=== PATIENT | male | born 1950 | race Caucasian/White ===

== ENCOUNTER → 2019-10-11 09:29 | Outpatient (CLI) | payer MEDICARE, SELFPAY ==
--- NOTE | ~2019-10-11 | MR_ITS ---
EXAMINATION: MR knee LT wo con DATE: 10/11/2019 10:18 INDICATION: Medial left knee pain. TECHNIQUE: Magnetic resonance imaging (MRI) of the left knee was performed without intravenous contra st. Sequences included axial PD-weighted FS FSE, coronal PD-weighted FSE and PD-weighted FS FSE, sagi ttal PD-weighted FSE, and sagittal T2-weighted FS FSE. COMPARISON: Left knee radiographs 10/05/2019 FINDINGS: Medial compartment: There is an undersurface horizontal tear involving body and posterior horn of medial meniscus. There is full-thickness cartilage loss of femoral condyle involving the central and posterior articular jean-pierre face in an area measuring 2.1 x 0.4 cm with mild subchondral edema-like marrow signal intensity. Ther e are areas of shallow partial-thickness cartilage loss of femoral condyle. There is cartilage surfac e irregularity of tibial condyle. Marginal osteophytes are noted. Lateral compartment: There is a complex tear involving body and posterior horn of lateral meniscus. There is deep partial thickness cartilage loss of femoral condyle involving the central articular surface with mild subchon dral edema-like marrow signal intensity. There is deep partial thickness cartilage loss of tibial con dyle involving the medial and posterior aspects of the articular surface with mild subchondral edema- like marrow signal intensity. Patellofemoral compartment: There is full-thickness cartilage loss of patellar medial facet and partial thickness cartilage loss of patellar median ridge and lateral facet with mild subchondral edema-like marrow signal intensity. There is shallow partial-thickness cartilage loss of trochlea. Marginal osteophytes are noted. Ligaments and tendons: There is a complete tear of anterior cruciate ligament. Posterior cruciate ligaments is intact. There are changes of prior sprains of medial collateral ligament and fibular collateral ligament character ized by thickening and increased signal intensity proximally. The patellar tendon is normal. Fluid: There is a small knee joint effusion. There is a moderate-sized ruptured Pearce's cyst. There is mild prepatellar and superficial infrapatellar bursitis. IMPRESSION: 1. Severe chondrosis of medial and patellofemoral compartments and moderate chondrosis of lateral com partment. 2. Complete tear of anterior cruciate ligament. 3. Tears of medial and lateral menisci. 4. Small knee joint effusion. 5. Moderate-sized ruptured Pearce's cyst. Reviewed, dictated and finalized at location A. [employer] IMPRESSION: 1. Severe chondrosis of medial and patellofemoral compartments and moderate cho ndrosis of lateral compartment. 2. Complete tear of anterior cruciate ligament. 3. Tears of medial and lateral menisci. 4. Small knee joint effusion. 5. Moderate-sized ruptured Pearce's cyst.
== END ==
PROVIDERS: PCP Internal Medicine; Visit Provider Internal Medicine
DX: M25.462 Effusion, left knee (principal); M71.22 Synovial cyst of popliteal space [Baker], left knee; S83.512A Sprain of anterior cruciate ligament of left knee, initial encounter; X58.XXXA Exposure to other specified factors, initial encounter; S83.282A Other tear of lateral meniscus, current injury, left knee, initial encounter; S83.242A Other tear of medial meniscus, current injury, left knee, initial encounter
CPT/HCPCS: 73721

== ENCOUNTER 2022-09-21 13:40 | Outpatient (RCR) | payer MEDICARE, SELFPAY ==
--- NOTE | 2022-09-21 15:08 | BUPTOPEVAL1 ---
Assessment and note entered by Deandra Leon, PT Evaluation Information Assessment Status Evaluation Diagnosis dizziness and giddiness Onset ~ a year ago Subjective Information Noticed was behind the plate in baseball noticed couldn't focus on the ball when it would come over the plate. States was working on his wifes grave and was up and down, then had to lay on the ground because was so dizzy for about a half hour. 2 weeks ago, was getting ready to shower, bent over and fell to the floor and belly crawled to the phone. Reports always feels a small tightness in sinus area. Reported Pain Level Pain Score 0: Self Report Additional Pain Score Comments Reports dizziness. Always is a little cloudy feeling a little tight in sinus area 10/10 with symptoms a few weeks ago. Assessment PT Clinical Summary Pt presents w/ dx of dizziness and giddiness. Pt reports of symptoms highly suggestive of BPPV at the time he was having symptoms. Today he demo's mild deficit in static balance in small base of support positions, only mild increased difficulty in balance between eyes open and closed testing, and zero symptoms with Cromwell-Hallpike, Roll Test, or VOR testing. Only symptoms present today are mild sinus pressure, and difficulty with eyes focusing at times both without dizzienss. Pt was educated on anatomy and physiology of BPPV, his current status and functional level and therapy plans. Pt also has an eye doctor appt in two days, advised pt to discuss symptoms with doctor. Pt and therapist decided together that as patient nicole has no vestibular symptoms, is highly safe and functional regarding balance, to await eye doctor prognosis and revisit therapy options. Plan of Care Interventions Neuro Re-education,Therapeutic Activities, Therapeutic Exercise PT Services Indicated Yes Treatment Frequency and 1-2x weekly x 4 weeks pending patient decision Duration after eye doctor. These treatments will address the objective and functional deficits as defined above. The patient will be advanced safely and appropriately in order for the patient to progress towards his/her prior level of function. Additional exercises will be introduced and as well as a comprehensive home exercise program upon discharge, if needed, ?to ensure c
--- NOTE | 2022-10-16 11:25 | PTOPDC ---
Assessment and note entered by Deandra Leon, PT Assessment Status Discharge - Pt Not Present Diagnosis dizziness and giddiness Onset ~ a year ago Subjective Information (09/21/22) Noticed was behind the plate in baseball noticed couldn't focus on the ball when it would come over the plate. States was working on his wifes grave and was up and down, then had to lay on the ground because was so dizzy for about a half hour. 2 weeks ago, was getting ready to shower, bent over and fell to the floor and belly crawled to the phone. Reports always feels a small tightness in sinus area. Reported Pain Level Pain Score 0: Self Report Assessment PT Clinical Summary Pt had presented to therapy for evaluation of his dizziness on 09/21/22. Evaluation was unable to provoke symptoms at the time with only testing showing visual deficits and pt c/o sinus pressure sensation. Pt has since seen the eye doctor, and has not called to return to therapy. Thus pt is being discharged from [facility].
== END 2022-10-16 12:47 | disposition home or self-care (01) ==
LOC: ANHHIPT 13:40
PROVIDERS: PCP Family Medicine; Visit Provider Family Medicine
DX: R42 Dizziness and giddiness (principal)
CPT/HCPCS: 97161

== ENCOUNTER 2024-12-04 08:49 | Outpatient (CLI) | payer MEDICARE, SELFPAY ==
--- OUTSIDE RECORDS SUMMARY | 2024-12-04 09:28 | XMS_ITS | Clinical Summary ---
Author Organization [facility] Address [address] [place] [address] Care Team Providers Care Patient Liaison Name Role Phone Maykel Palafox MD Primary Care Provider [phone] Allergies Active Allergy Reactions Criticality Noted Date Comments Tamsulosin Dizziness 07/15/2022 Medications benazepril (LOTENSIN) 10 MG tabletIndicatio ns:Hypertension Take 1 tablet (10 mg total) by mouth daily. Indications: High Blood Pressure 2 Active simvastatin (ZOCOR) 40 MG tabletIndicatio ns:Hyperlipidem ia Take 1 tablet (40 mg total) by mouth nightly at bedtime. Indications: High Amount of Fats in the Blood 2 Active multi vitamin/mineral s (THERA-M ENHANCED) tabletIndicatio ns:supplement Take 1 tablet by mouth daily. Indications: supplement Active polyvinyl alcohol (LIQUIFILM/STEPHANI FICIAL TEARS) 1.4 % ophthalmic solutionIndicat ions:Dry Eye Syndrome Place 1 drop into both eyes as needed (dry eyes). Indications: Drying and Inflammation of Cornea and Conjunctiva of Eyes Active HYDROcodone-radha taminophen (NORCO) 5-325 MG tabletIndicatio ns:Acute Pain < 7 Day Supply Take 1-2 tablets by mouth every 4 (four) hours as needed. Indications: Acute Pain < 7 Day Supply 45 tablet 4 Active Additional Information Patient not taking.Reported on 09/28/2024 aspirin 325 MG tabletIndicatio ns:anticogulant Take 1 tablet (325 mg total) by mouth 2 (two) times daily. Indications: anticogulant 4 Active tiZANidine (ZANAFLEX) 4 MG tabletIndicatio ns:S/P TKR (total knee replacement), left take 1 tablet by mouth every 6 hours as needed 30 tablet 4 Active HYDROcodone-radha taminophen (NORCO) 10-325 MG tabletIndicatio ns:Acute Pain < 7 Day Supply Take 1 tablet by mouth every 4 (four) hours as needed for Pain. Indications: Acute Pain < 7 Day Supply 42 tablet 4 Active Additional Information Patient not taking.Reported on 09/28/2024 Acetaminophen (TYLENOL ARTHRITIS EXT RELIEF OR) Active pregabalin (LYRICA) 75 MG capsule Take 1 capsule (75 mg total) by mouth 2 (two) times daily. 4 Active cephALEXin (KEFLEX) 500 MG capsuleIndicati ons:S/P TKR (total knee replacement), left Take 1 capsule 30-60 minutes prior to dental procedure, then take 1 capsule every 6 hours until gone. #6. 6 capsule 4 Active methylPREDNISol one, CORNELIO, (MEDROL DOSEPAK) 4 MG tablet take by mouth as directed on inside of package 5 Active Active Problems Problem Noted Date Diagnosed Date S/P TKR (total knee replacement), left 4 Assessment & Plan (09/29/2024 1:02 PM YEAST CULTURE OPERATOR): Recommendation at this time we went over the risks benefits as well as the alternatives. He is to continue with progressive range of motion and strengthening. We'll see him back in six months. Assessment & Plan (06/23/2024 2:12 PM CDT): Recommendation at this time is to continue with a progressive range of motion and strengthening. Ice and elevate as needed. We'll see him back in three months. Assessment & Plan (05/13/2024 12:09 PM CDT): Recommendation at this time is gradually increase his activities as tolerated. We will see him back in six weeks for repeat evaluation. BMI 25.0-25.9,adult 03/05/2024 Primary osteoarthritis of left knee 03/04/2024 Assessment & Plan (03/04/2024 1:56 PM CDT): We discussed the risks, benefits, and alternatives. The only thing proven to slow the progression of osteoarthritis is weight loss. Every pound lost relieves 4 to 6 pounds of stress across the knee. We discussed unloading braces. Formal physical therapy to help with flexibility, mobility, and strength. We discussed TENS units. Nonsteroidal anti-inflammatories as well as Tylenol and pain medication and their side effects. We discussed steroid versus Visco supplement injection. We discussed eventual total knee arthroplasty. Failure of non-operative treatment. He has failed steroid injections, non- steroidal anti-inflammatories, activity modification, and bracing. After going over the risks and benefits as well as the alternatives, we went over standard instrumentation, custom cutting blocks, and Les robot-assisted total knee arthroplasty. He wants to go as soon as possible, so we'll try to get him set up on 03/29/24 here at [facility]. Hypertension Encounters Date Type Department Care Team Description 09/28/2024 1:00 PM YEAST CULTURE OPERATOR Office Visit [facility] Orthopedic Surgery[facility] [address] [place] [address] Tony Taylor DO Postop Followup (Left TKR 03/29/24) 09/28/2024 Travel from Last 3 Months Family History Medical History Relation Comments Hypertension Father No Known Problems Mother Relation Status Comments Father Mother Social History Tobacco Use Types Packs/Day Years Used Date Smoking Tobacco: Former Cigarettes Smokeless Tobacco: Never Tobacco Cessation:Counseling Given: No Alcohol Use Standard Drinks/Week Comments Yes 0 (1 standard drink = 0.6 oz pur e alcohol) rare use OASIS D0700: Social Isolation Answer Da te Recorded Frequency of experiencing loneliness or isolatio n Never 04/11/2024 OASIS A1250: Transportation Answer Date Recorded Lack of Transportation (Medical) No 04/11/2024 Lack of Transportation (Non-Medical) No 04/11/2024 Patient Unable or Declines to Respond No 04/11/2024 OASIS B1300: Health Literacy Answer Elkin e Recorded Frequency of needing help to read materials from doctor or pharmacy Never 04/11/2024 PHQ-2 Answer Date Recorded Patient Health Questionnaire-2 Score 0 09/28/2024 Sex and Gender Information Value Date Recorded Sex Assigned at Male 09/28/2024 12:50 PM YEAST CULTURE OPERATOR Legal Sex Male 6:35 PM CDT Gender Identity Not on file Sexual Orientation Not on file Last Filed Vital Signs Vital Sign Reading Time Taken Comments Blood Pressure 131/74 09/28/2024 12:53 PM YEAST CULTURE OPERATOR Pulse 72 09/28/2024 12:53 PM YEAST CULTURE OPERATOR Temperature 36.3 C (97.3 F) 09/28/2024 12:53 PM YEAST CULTURE OPERATOR Respiratory Rate 18 04/11/2024 8:47 AM CDT Oxygen Saturation 96% 09/28/2024 12:53 PM YEAST CULTURE OPERATOR Inhaled Oxygen Concentration - - Weight 80.1 kg (176 lb 9.6 oz) 09/28/2024 12:53 PM YEAST CULTURE OPERATOR Height 175.3 cm (5' 9 ) 09/28/2024 12:53 PM YEAST CULTURE OPERATOR Body Mass Index 26.08 09/28/2024 12:53 PM YEAST CULTURE OPERATOR Plan of Treatment Upcoming Encounters Date Type Department Care Team (Late st Contact Info) Description 03/29/2025 1:00 PM CDT Office Visit [facility] [address] [place] [address] [place] [address] [place] [address] Health Maintenance Due Date Last Done Comments Hepatitis C 1968 Annual Medicare Wellness Visit 2013 RSV Immunization or 60+ Years (1 - 1-dose 75+ series) 2023 COVID-19 Vaccine ( season) 2024 02/21/2022, 07/04/2021, 11/14/2020, Additional history exists Influenza Adult (#1) 2024 06/26/2019, 06/13/2018, 06/10/2017 DTaP, Tdap and Td Vaccines (3 - Td or Tdap) 07/26/2028 07/26/2018, 03/18/2017, 05/05/2002, Additional history exists Pneumococcal Vaccine: 65+ Years Completed 06/13/2018, 03/30/2017 Zoster Vaccines Completed 05/05/2022, 02/21/2022 Colorectal Cancer Screening FIT/FOBT (1 Year) Discontinued 07/15/2022 PHQ-2 (Physician Hardin) Completed 09/28/2024 Meningococcal B Vaccine Aged Out No l onger eligible based on patient's age to complete this topic Meningococcal Vaccine Aged Out No rolando gena eligible based on patient's age to complete this topic RSV Immunizations Under 20 Months Aged Out No longer eligible based on patient's age to complete this topic Medical Devices Implanted Type Area Customer Relationship Specialist Device Identifier Shelf Expiration Date Model / Serial / Lot Pump Pain On-Q 400ml - [id number] Implanted:Qty : 1 on 03/29/2024 by Tony Taylor DO at [facility] Pump Left: Knee [employer] [id number] 01/17/2026 [id number] / / [id number] Left, Size 6 Porous Tibia Baseplate Implanted:Qty : 1 on 03/29/2024 by Tony Taylor DO at [facility] Left: Tibia [employer] [id number] 04/19/2032 [id number] / / [id number] Size 5, Left Sommer Porous Cruciate Retaining Femoral Component Implanted:Qty : 1 on 03/29/2024 by Tony Taylor DO at [facility] Left: Femur [employer] [id number] 05/08/2033 [id number] / / [id number] Oval, Size 32mm Porous Patella Implanted:Qty : 1 on 03/29/2024 by Tony Taylor DO at [facility] Left: Patella [employer] [id number] 01/24/2032 [id number] / / [id number] Size 5-6, 10mm Deep Dished With Jrny Lock Articular Insert Implanted:Qty : 1 on 03/29/2024 by Tony Taylor DO at [facility] Left: Knee [employer] [id number] 11/03/2031 [id number] / / [id number] Procedures Procedure Name Priority Date/Time Associated Diagnosis Comments OCCULT BLOOD, FECES STAT 07/15/2022 1 :17 PM CDT from Last 3 Months or Most Recently Relevant to Health Maintenance Results * OCCULT BLOOD, FECES (07/15/2022 1:17 PM CDT) OCCULT BLOOD FECAL POSITIVE 07/15/2022 1:31 PM CDT [facility] STOOL SPECIMEN / Unknown 07/15/2022 1:17 PM CDT Melanie CAMPOVERDE BODY FLUIDS AND STOOLS ORDERA BLES Final Result [facility] [address] [place] [address], from Last 3 Months or Most Recently Relevant to Health Maintenance Insurance MEDICARE [place] Advance Directives * Full Code (Latest Code Status on File) Date Activated Date Inactivated Comments 04/11/2024 1:00 PM * Full Code Date Activated Date Inactivated Comments 03/31/2024 7:58 AM 04/03/2024 5:04 PM * Full Code Date Activated Date Inactivated Comments 03/29/2024 1:15 PM 03/30/2024 2:17 PM Care Teams Patient Liaison Relationship Specialty Start Date End Date Maykel Palafox MD [address] [place] [id number] PCP - General FAMILY PRACTICE 07/15/22
--- NOTE | 2024-12-04 11:00 | NEURO_ITS ---
Impression: # Complains of numbness of hands. Non-diabetic. ? # Bilateral severe Carpal Tunnel Syndrome. ? # Bilateral ulnar neuropathy across the elbows. ? # Abnormal needle/EMG exam. Nerve Conduction Studies Anti Sensory Summary Table ?Stim Site NR Peak (ms) P-T Amp (?V) Site1 Site2 Delta-P (ms) Dist (cm) Damion (m/s) Left Median Anti Sensory (2-3nd Digit) Wrist ? 5.1 25.1 Wrist 2-3nd Digit 5.1 14.0 27 Wrist ? 5.3 13.1 Wrist 2-3nd Digit 5.1 14.0 27 Right Median Anti Sensory (2-3nd Digit) Wrist ? 6.2 12.0 Wrist 2-3nd Digit 6.2 14.0 23 Wrist ? 6.7 6.4 Wrist 2-3nd Digit 6.2 14.0 23 Left Radial Anti Sensory (Base 1st Digit) Wrist ? 2.1 15.9 Wrist Base 1st Digit 2.1 0.0 Right Radial Anti Sensory (Base 1st Digit) Wrist ? 2.8 9.1 Wrist Base 1st Digit 2.8 0.0 Left Ulnar Anti Sensory (5th Digit) Wrist ? 3.2 19.6 Wrist 5th Digit 3.2 14.0 44 Right Ulnar Anti Sensory (5th Digit) Wrist ? 2.8 26.9 Wrist 5th Digit 2.8 14.0 50 Motor Summary Table ?Stim Site NR Onset (ms) O-P Amp (mV) Site1 Site2 Delta-0 (ms) Dist (cm) Damion (m/s) Left Median Motor (Abd Poll Brev) Wrist ? 7.0 1.0 Elbow Wrist 4.7 30.0 64 Elbow ? 11.7 3.4 Right Median Motor (Abd Poll Brev) Wrist ? 6.9 1.1 Elbow Wrist 4.5 31.0 69 Elbow ? 11.4 6.9 Left Ulnar Motor (Abd Dig Minimi) Wrist ? 2.7 6.3 A Elbow Wrist 5.7 31.0 54 A Elbow ? 8.4 5.5 B Elbow Wrist 4.1 26.0 63 B Elbow ? 6.8 5.5 Right Ulnar Motor (Abd Dig Minimi) Wrist ? 2.8 4.5 A Elbow Wrist 5.8 32.0 55 A Elbow ? 8.6 3.6 B Elbow Wrist 4.3 21.0 49 B Elbow ? 7.1 3.1 F Wave Studies ?NR F-Lat (ms) L-R F-Lat (ms) Left Median (Mrkrs) (Abd Poll Brev) ? 33.80 0.58 Right Median (Mrkrs) (Abd Poll Brev) ? 34.39 0.58 Left Ulnar (Mrkrs) (Abd Dig Min) ? 31.76 0.00 Right Ulnar (Mrkrs) (Abd Dig Min) ? 31.76 0.00 EMG ?Side Muscle Nerve Root Ins Act Fibs Amp Dur Recrt Comment Right 1stDorInt Ulnar C8-T1 Nml Nml Incr >12ms +1 Right Ext Indicis Radial (Post Int) C7-8 Nml Nml Nml Nml Nml Right Ext Digitorum Radial (Post Int) C7-8 Nml Nml Nml Nml Nml Right BrachioRad Radial C5-6 Nml Nml Nml Nml Nml Right PronatorTeres Median C6-7 Nml Nml Nml Nml Nml Right Abd Poll Brev Median C8-T1 Nml Nml Incr >12ms +1 Right ABD Dig Min Ulnar C8-T1 Nml Nml Incr >12ms +1 Left 1stDorInt Ulnar C8-T1 Nml Nml Incr >12ms +1 Left Ext Indicis Radial (Post Int) C7-8 Nml Nml Nml Nml Nml Left Ext Digitorum Radial (Post Int) C7-8 Nml Nml Nml Nml Nml Left BrachioRad Radial C5-6 Nml Nml Nml Nml Nml Left PronatorTeres Median C6-7 Nml Nml Nml Nml Nml Left Abd Poll Brev Median C8-T1 Nml Nml Incr >12ms +1 Left ABD Dig Min Ulnar C8-T1 Nml Nml Incr >12ms +1 Right Abd Poll Long Radial (Post Int) C7-8 Nml Nml Nml Nml Nml Right FlexPolLong Median (Ant Int) C7-8 Nml Nml Nml Nml Nml Left FlexPolLong Median (Ant Int) C7-8 Nml Nml Nml Nml Nml Left Abd Poll Long Radial (Post Int) C7-8 Nml Nml Nml Nml Nml MTDD
== END 2024-12-04 08:50 | disposition home or self-care (01) ==
LOC: ANHNEURO 08:50
PROVIDERS: PCP Nurse Practitioner Family; Visit Provider Nurse Practitioner Family
DX: G56.03 Carpal tunnel syndrome, bilateral upper limbs (principal); G56.23 Lesion of ulnar nerve, bilateral upper limbs; R94.131 Abnormal electromyogram [EMG]
CPT/HCPCS: 95886; 95911

== ENCOUNTER 2025-02-23 12:41 | Outpatient (CLI) | payer MEDICARE, SELFPAY ==
--- NOTE | 2025-02-23 12:59 | ECG_ITS ---
Test Date: 2025-02-23 13:06:45 Measurements Intervals [place] Rate: 53 P: 44 NM: 177 QRS: 5 QRSD: 151 T: -14 QT: 473 QTc: 444 Interpretive Statements SINUS BRADYCARDIA RIGHT BUNDLE BRANCH BLOCK BASELINE ARTIFACT- I, II, III, AVR, AVL, AVF ABNORMAL ECG No previous ECG available for comparison Electronically Signed On 02-23-2025 13:13:29 CDT by Qasim Khan D.O.
== END 2025-02-23 12:42 | disposition home or self-care (01) ==
PROVIDERS: PCP Nurse Practitioner Family; Visit Provider Anesthesiology
DX: I10 Essential (primary) hypertension (principal)
CPT/HCPCS: 93005

== ENCOUNTER 2025-03-15 05:54 | Day surgery (SDC) | payer MEDICARE, SELFPAY ==
--- OUTSIDE RECORDS SUMMARY | 2025-03-15 06:06 | XMS_ITS | Clinical Summary ---
Author Organization [facility] Address [address] [place] [address] Care Team Providers Care Software Security Consultant Name Role Phone Maykel Palafox MD Primary Care Provider [phone] Allergies Active Allergy Reactions Criticality Noted Date [...] 4 Assessment & Plan (09/29/2024 1:02 PM [facility]STATE [facility]): Recommendation at this time we went over [...] over standard instrumentation, custom cutting blocks, and Lse robot-assisted total knee arthroplasty. He wants to go as soon as possible, so we'll try to get him set up on 03/29/24 here at [facility]. Hypertension Family History Medical History Relation Comments Hypertension [...] Sex Assigned at Male 09/28/2024 12:50 PM [facility] [employer] Legal Sex Male 6:35 PM CDT Gender Identity Not on file Sexual Orientation Not on file Last Filed Vital Signs Vital Sign Reading Time Taken Comments Blood Pressure 131/74 09/28/2024 12:53 PM [employer] Pulse 72 09/28/2024 12:53 PM [employer] Temperature 36.3 C (97.3 F) 09/28/2024 12:53 PM [employer] Respiratory Rate 18 04/11/2024 8:47 AM CDT Oxygen Saturation 96% 09/28/2024 12:53 PM [employer]STATE [employer] Inhaled Oxygen Concentration - - Weight 80.1 kg (176 lb 9.6 oz) 09/28/2024 12:53 PM [employer] Height 175.3 cm (5' 9) 09/28/2024 12:53 PM [employer]STATE [employer] Body Mass Index 26.08 09/28/2024 12:53 PM ESTATE [employer] Plan of Treatment Upcoming Encounters Date Type Department Care Team (Late st Contact Info) Description 03/29/2025 8:20 AM CDT Office Visit [facility] Orth[facility] [address] [place], [place] [id number] [place] [phone] [place] [address] Health Maintenance Due Date Last Done Comments Hepatitis C 1968 Annual Medicare Wellness Visit 2013 RSV Immunization or 60+ Years (1 - 1-dose 75+ series) 2023 COVID-19 Vaccine ( season) 2024 02/21/2022, 07/04/2021, 11/14/2020, Additional history exists DTaP, Tdap and Td Vaccines (3 - Td or Tdap) 07/26/2028 07/26/2018, 03/18/2017, 05/05/2002, Additional history exists Pneumococcal Vaccine: 50+ Years Completed 06/13/2018, 03/30/2017 Zoster Vaccines Completed 05/05/2022, 02/21/2022 Colorectal Cancer Screening FIT/FOBT (1 Year) Discontinued 07/15/2022 PHQ-2 (Physician [place]) Completed 09/28/2024 Meningococcal B Vaccine Aged Out No l onger eligible based on patient's age to complete this topic Meningococcal Vaccine Aged Out No rolando gena eligible based on patient's age to complete this topic RSV Immunizations Under 20 Months Aged Out No longer eligible based on patient's age to complete this topic Goals Goal Patient Goal Type Associated Problems Recent Progress Patient-Stated? Author Autogenerat ed Goal Care Plan Autogenerated Problem No Tony Taylor DO Medical Devices Implanted Type Area Furniture Mover Helper Device Identifier Shelf Expiration Date Model / Serial / Lot Pump Pain On-Q 400ml - [id number] Implanted:Qty : 1 on 03/29/2024 by Tony Taylor DO at [facility] Pump Left: Knee [employer] [id number] 01/17/2026 [id number] / / [id number] Left, Size 6 Porous Tibia Baseplate Implanted:Qty : 1 on 03/29/2024 by Tony Taylor DO at [facility] Left: Tibia [employer] [id number] 04/19/2032 [id number] / / [id number] Size 5, Left Sommer Porous Cruciate Retaining Femoral Component Implanted:Qty : 1 on 03/29/2024 by Tony Taylor DO at [facility] Left: Femur [employer] [id number] 05/08/2033 [id number] / / [id number] Oval, Size 32mm Porous Patella Implanted:Qty : 1 on 03/29/2024 by Tony Taylor DO at [facility] Left: Patella [employer] [id number] 01/24/2032 [id number] / / [id number] Size 5-6, 10mm Deep Dished With Jrny Lock Articular Insert Implanted:Qty : 1 on 03/29/2024 by Tony Taylor DO at [facility] Left: Knee [employer] [id number] 11/03/2031 [id number] / / [id number] Procedures Procedure Name Priority Date/Time Associated Diagnosis Comments OCCULT BLOOD, FECES STAT 07/15/2022 1 :17 PM CDT from Last 3 Months or Most Recently Relevant to Health Maintenance Results * OCCULT BLOOD, FECES (07/15/2022 1:17 PM CDT) OCCULT BLOOD FECAL POSITIVE 07/15/2022 1:31 PM CDT [facility] STOOL SPECIMEN / Unknown 07/15/2022 1:17 PM CDT us Melanie R Juan PA BODY FLUIDS AND STOOLS ORDERA BLES Final Result [facility] [address] [place] [address], from Last 3 Months or Most Recently Relevant to Health Maintenance Additional Health Concerns Active Problems Noted Date Diagnosed Date Autogenerated Problem 01/23/2025 Insurance MEDICARE [place] Advance Directives * Full Code (Latest Code Status on File) Date Activated Date Inactivated Comments 04/11/2024 1:00 PM * Full Code Date Activated Date Inactivated Comments 03/31/2024 7:58 AM 04/03/2024 5:04 PM * Full Code Date Activated Date Inactivated Comments 03/29/2024 1:15 PM 03/30/2024 2:17 PM Care Teams Software Security Consultant Relationship Specialty Start Date End Date Maykel Palafox MD [address] [place] [id number] PCP - General FAMILY PRACTICE 07/15/22
[2025-03-15 06:19] VITALS: BP 116/74; PULSE 61; RESP 16; TEMP 36.6; O2SAT 99
[2025-03-15] MEDS: ACETAMINOPHEN 500 MG TABLET 1000 MG PO (06:29)
--- NOTE | 2025-03-15 06:45 | PM.HPGS ---
History of Present Illness History of Present Illness Chief complaint: Bilateral Carpal and Cubital Tunnel Syndrome Narrative: Patient seen and examined in pre-operative holding area. No interval change in medical history or symptoms. Patient recalls previous discussion of benefits and alternatives to procedure. Continues to desire to proceed with left endoscopic possible open carpal tunnel release and left cubital tunnel release . Reviewed procedure, post-op expectations and risks including but not limited to bleeding, infection, injury to tendon/nerve/vessel, decreased hand function, stiffness, RSD, no change or worsening of symptoms. I discussed the possible use of assistants and their participation in the case. Patient stated understanding and signed the consent form wishing to proceed. Review of Systems Review of Systems: All systems reviewed & are unremarkable except as noted in HPI and below PMFSH Past Medical History Medical History Osteoarthritis Carpal tunnel syndrome Erectile dysfunction BPV (benign positional vertigo) Gastroenteritis Dizziness Abnormal vision Hypertension Hyperlipidemia Surgical History Surgical History Hx of total knee arthroplasty left 03/29/24 History of colonoscopy 2014 History of back surgery Social History Social History Social History: 09/21/24 very confident with medical forms Smoking status: Former smoker Additional smoking assessment comments: quit 33 years ago Alcohol intake: current Alcohol use details: occasionally Substance use: never Substance use type: does not use Do You Feel Safe in your Home?: Yes Lack of Transportation: No Lack of Food: Never True Current Housing: I Have Housing Concerned About Future Housing: No Difficulty Paying Gas/Electric Bills: No Difficulty Paying for Meds: No Currently Unemployed: No Education: High School Diploma/GED Difficulty w/ Childcare or Family Care: No Living arrangements: alone Occupation/Education: retired Spiritual care concerns: No Meds Home Medications and Allergies Home Medications ?Medication ?Instructions ?Recorded ?Confirmed ?Type aspirin 81 mg tablet,delayed 81 mg PO DAILY 04/07/24 03/15/25 History release (Adult Low Dose Aspirin) acetaminophen 650 mg 650 mg PO Q8H PRN pain 06/05/24 03/15/25 History tablet,extended release (Tylenol Arthritis Pain) benazepril 10 mg tablet See Rx Instructions .Route 11/06/24 03/15/25 Rx .COMPLEX #90 tabs pregabalin 75 mg capsule (Lyrica) 75 mg PO BID #180 caps 11/06/24 03/15/25 Rx simvastatin 40 mg tablet See Rx Instructions .Route 02/06/25 03/15/25 Rx .COMPLEX #90 tabs tramadol 50 mg tablet 50 mg PO Q6H PRN pain #12 tabs 03/15/25 Rx Allergies Allergy/AdvReac Type Severity Reaction Status Date / Time apixaban (From Eliquis) AdvReac Swelling Verified 03/15/25 06:18 Vital Signs Vital Signs - 24 hr 03/15/25 06:19 Temperature 36.6 C Pulse Rate 61 Respiratory Rate 16 Blood Pressure 116/74 Pulse Oximetry 99 Oxygen Delivery Room Air Exam Narrative: unchanged Assessment and Plan Assessment and plan (1) Carpal tunnel syndrome: Qualifiers: Laterality: bilateral Qualified Code(s): G56.03 - Carpal tunnel syndrome, bilateral upper limbs Code(s): G56.00 - Carpal tunnel syndrome, unspecified upper limb Status: Acute Assessment and Plan: cont as above (2) Ulnar neuropathy at elbow: Qualifiers: Laterality: unspecified laterality Qualified Code(s): G56.20 - Lesion of ulnar nerve, unspecified upper limb Code(s): G56.20 - Lesion of ulnar nerve, unspecified upper limb Status: Acute
--- NOTE | 2025-03-15 06:46 | P.OP_ITS ---
Procedure Note - Detailed Date of Procedure 03/15/25 Pre-op Diagnosis Bilateral Carpal and Cubital Tunnel Syndrome Post-op Diagnosis Same Procedure Performed left ectr and CuTR Surgeon Jose Davila MD [employer] Mechanic carmen soto pa-c Anesthesia MAC Description of Procedure INFORMED CONSENT: The patient was seen and examined and marked in the pre-op area.? The patient signed the consent form. PROCEDURE IN DETAIL:The patient taken back to OR on the stretcher in supine position. Time out performed with anesthesia, surgeon and staff agreeing on patient's name site and surgery to be performed SCDs were placed on the lower extremities and inflated. A tourniquet was placed on {left} upper extremity and antibiotics given IV After anesthesia administered sedation I injected {10}cc 1%lido with epi and 0.5% marcaine plain at the operative sites The?{left upper extremity}?was prepped and draped in sterile fashion the??{left upper extremity} was? exsanguinated with Esmarch bandage and tourniquet inflated to 250mmHg I made a transverse incision in the {left} volar distal wrist crease through skin and dermis with 15 blade scalpel.? Littler scissors spread down to antebrachial fascia. A small incision was made in antebrachial fascia allowing access to Carpal tunnel. I proceeded with sequential dilation staying in line with the ring finger and hugging the hook of the hamate.? I then used the synovial elevator to free any adhesions from the underside of the transverse carpal ligament. Next I was able to insert the Microaire endoscopic carpal tunnel device with direct visualization of the transverse fibers on the monitor and proceeded with complete segmental retrograde release of the ligament in its entirety.? I irrigated with normal saline and closed with 4-0 monocryl for dermis and subcuticular closure. I next proceeded with making a longitudinal incision between two heads for flexor carpi ulnaris at end of {left} cubital tunnel with 15 blade scalpel.? Littler scissors were used to spread down to FCU fascia.? An incision was made in FCU fascia and ulnar nerve identified exiting cubital tunnel.? I proceeded with complete retrograde release of the cubital tunnel including 7cm proximal for the intermuscular septum.? The nerve appeared healthy with visible vaso nervorum.? There was no subluxation on full elbow range of motion. ? I irrigated with normal saline and closure with 3-0 vicryl for dermis and 4-0 monocryl for subcuticular. The incisions were covered with Dermabond then 4x4s, floyd, and a posterior elbow and volar wrist splint for patient safety, security and comfort and secured with radha bandages after the tourniquet was let down noting the hand was warm and well perfused.? Patient awaken from anesthesia and transferred to recovery in stable condition Complications - none EBL- 1cc Disposition - home in stable condition Carmen Soto PA-C was essential for positionign, retraction, closure and dressing placement [facility] Billing Surgery - Charge Forward: Surgery Billing ([id number] same for carmen nieto )
--- NOTE | 2025-03-15 06:55 | P.PNAN_ITS ---
Anes - Initial Pre Proc Eval Procedure: Operation Date: 03/15/25 07:30 Proposed Procedures p Left Endoscopic Carpal Tunnel Release, Possible Open Carpal Tunnel Release - Jose Davila MD s Left Cubital Tunnel Release - Jose Davila MD Date/Time: 03/15/25 06:55 Surgeon: Jose Davila MD Pre Op Diagnosis: l carpel tunnel release Pre Op Diagnosis: Bilateral Carpal and Cubital Tunnel Syndrome Patient Data Age: 74 Gender: M Height: 1.75 m Weight: 80.15 kg Last Vital Signs Temp 98 F 03/15/25 06:19 Pulse 61 03/15/25 06:19 Resp 16 03/15/25 06:19 BP 116/74 03/15/25 06:19 Pulse Ox 99 03/15/25 06:19 O2 Del Method Room Air 03/15/25 06:19 Allergies Allergy/AdvReac Type Severity Reaction Status Date / Time apixaban (From EliExo Protein Bars) AdvReac Swelling Verified 03/15/25 06:18 Home Medications ?Medication ?Instructions ?Recorded ?Confirmed ?Type aspirin 81 mg tablet,delayed 81 mg PO DAILY 04/07/24 03/15/25 History release (Adult Low Dose Aspirin) acetaminophen 650 mg 650 mg PO Q8H PRN pain 06/05/24 03/15/25 History tablet,extended release (Tylenol Arthritis Pain) benazepril 10 mg tablet See Rx Instructions .Route 11/06/24 03/15/25 Rx .COMPLEX #90 tabs pregabalin 75 mg capsule (Lyrica) 75 mg PO BID #180 caps 11/06/24 03/15/25 Rx simvastatin 40 mg tablet See Rx Instructions .Route 02/06/25 03/15/25 Rx .COMPLEX #90 tabs Patient hx anesthesia problems: none Family hx anesthesia problems: none Results Review: All pre-operative results and documents have been reviewed as part of the pre- operative evaluation. [facility] Past Medical History Medical History Osteoarthritis Carpal tunnel syndrome Erectile dysfunction BPV (benign positional vertigo) Gastroenteritis Dizziness Abnormal vision Hypertension Hyperlipidemia Surgical History Surgical History Hx of total knee arthroplasty left 03/29/24 History of colonoscopy 2015 History of back surgery Social History Social History Social History: 09/21/24 very confident with medical forms Smoking status: Former smoker Additional smoking assessment comments: quit 33 years ago Alcohol intake: current Alcohol use details: occasionally Substance use: never Substance use type: does not use Do You Feel Safe in your Home?: Yes Lack of Transportation: No Lack of Food: Never True Current Housing: I Have Housing Concerned About Future Housing: No Difficulty Paying Gas/Electric Bills: No Difficulty Paying for Meds: No Currently Unemployed: No Education: High School Diploma/GED Difficulty w/ Childcare or Family Care: No Living arrangements: alone Occupation/Education: retired Spiritual care concerns: No Anes - Eval Final PreProcedure Day of Procedure 03/15/25 06:55 Heart: regular rate and rhythm Lungs: clear to auscultation Airway: Mallampati scale class II Last oral intake: >/= 8 hours ASA classification: II Anesthetic plan: proceed Results Review: All pre-operative results and documents have been reviewed as part of the pre- operative evaluation. Informed Consent: The patient's anesthetic plan and its attendant risks and benefits were discussed with the patient/family/POA. Questions were solicited and answers provided to the satisfaction of the patient/family/POA.
[2025-03-15] MEDS: LACTATED RINGERS 1,000 ML 30 ML IV CONT (07:08)
--- NOTE | 2025-03-15 07:17 | WPDANESPN ---
Anes - Prog Note Post-Op Date/Time: 03/15/25 07:17 Vital Signs: Last Vital Signs Temp 98 F 03/15/25 06:19 Pulse 61 03/15/25 06:19 Resp 16 03/15/25 06:19 BP 116/74 03/15/25 06:19 Pulse Ox 99 03/15/25 06:19 O2 Del Method Room Air 03/15/25 06:19 Pain Score (VAS): no Patient Feedback: Patient satisfied with anesthetic care.
[2025-03-15] MEDS: ceFAZolin SODIUM 2 GM/20 ML SW SYRINGE IV PUSH (07:22)
[2025-03-15] MEDS: BUPivacaine HCL 0.5% 10 ML AMP INFILTRATE (07:25)
[2025-03-15 07:51] VITALS: BP 97/60; PULSE 56; RESP 17; O2SAT 97
[2025-03-15 08:01] VITALS: BP 98/67; PULSE 59; RESP 16; O2SAT 98
[2025-03-15 08:11] VITALS: BP 109/71; PULSE 56; RESP 16; O2SAT 98
== END 2025-03-15 08:25 | disposition home or self-care (01) ==
PROVIDERS: PCP Nurse Practitioner Family; Visit Provider Plastic Surgery
PROC: 01N54ZZ Release Median Nerve, Percutaneous Endoscopic Approach (ICD-10-PCS; CPT 29848; principal; 2025-03-15 07:30)
PROC: (CPT 64718; 2025-03-15 07:30)
DX: G56.02 Carpal tunnel syndrome, left upper limb (principal); G56.22 Lesion of ulnar nerve, left upper limb
CPT/HCPCS: 29848; 64718

== ENCOUNTER 2025-04-12 07:44 | Day surgery (SDC) | payer MEDICARE, SELFPAY ==
--- NOTE | 2025-04-12 06:49 | WPDHPUPDATE1 ---
History and Physical Update Update Date/Time: 04/12/25 06:49 Patient seen and examined in pre-operative holding area. No interval change in medical history or symptoms. Patient recalls previous discussion of benefits and alternatives to procedure. Continues to desire to proceed with right endoscopic possible open carpal tunnel release and right cubital tunnel release . Reviewed procedure, post-op expectations and risks including but not limited to bleeding, infection, injury to tendon/nerve/vessel, decreased hand function, stiffness, RSD, no change or worsening of symptoms. I discussed the possible use of assistants and their participation in the case. Patient stated understanding and signed the consent form wishing to proceed.
--- NOTE | 2025-04-12 06:50 | W.PM.PROC2 ---
Procedure Note - Detailed Date of Procedure 04/12/25 Pre-op Diagnosis Bilateral Carpal and Cubital Tunnel Syndrome Post-op Diagnosis Same Procedure Performed right ectr and CuTR Surgeon Jose Davila MD [employer] Worker carmen soto pa-c Anesthesia MAC Description of Procedure INFORMED CONSENT: The patient was seen and examined and marked in the pre-op area.? The patient signed the consent form. PROCEDURE IN DETAIL:The patient taken back to OR on the stretcher in supine position. Time out performed with anesthesia, surgeon and staff agreeing on patient's name site and surgery to be performed SCDs were placed on the lower extremities and inflated. A tourniquet was placed on {right} upper extremity and antibiotics given IV After anesthesia administered sedation I injected {10}cc 1%lido with epi and 0.5% marcaine plain at the operative sites The?{right upper extremity/}?was prepped and draped in sterile fashion the??{right upper extremity} was? exsanguinated with Esmarch bandage and tourniquet inflated to 250mmHg I made a transverse incision in the {right} volar distal wrist crease through skin and dermis with 15 blade scalpel.? Littler scissors spread down to antebrachial fascia. A small incision was made in antebrachial fascia allowing access to Carpal tunnel. I proceeded with sequential dilation staying in line with the ring finger and hugging the hook of the hamate.? I then used the synovial elevator to free any adhesions from the underside of the transverse carpal ligament. Next I was able to insert the Microaire endoscopic carpal tunnel device with direct visualization of the transverse fibers on the monitor and proceeded with complete segmental retrograde release of the ligament in its entirety.? I irrigated with normal saline and closed with 4-0 monocryl for dermis and subcuticular closure. I next proceeded with making a longitudinal incision between two heads for flexor carpi ulnaris at end of {right} cubital tunnel with 15 blade scalpel.? Littler scissors were used to spread down to FCU fascia.? An incision was made in FCU fascia and ulnar nerve identified exiting cubital tunnel.? I proceeded with complete retrograde release of the cubital tunnel including 7cm proximal for the intermuscular septum.? The nerve appeared healthy with visible vaso nervorum.? There was no subluxation on full elbow range of motion. ? I irrigated with normal saline and closure with 4-0 monocryl for dermis and subcuticular. The incisions were covered with Dermabond then 4x4s, floyd, and a posterior elbow and volar wrist splint for patient safety, security and comfort and secured with radha bandages after the tourniquet was let down noting the hand was warm and well perfused.? Patient awaken from anesthesia and transferred to recovery in stable condition Complications - none EBL- 1cc Disposition - home in stable condition carmen soto pa-c was essential for positioning, retraction, closure and dressing placement [facility] Billing Surgery - Charge Forward: Surgery Billing ([id number] same for carmen adding )
--- OUTSIDE RECORDS SUMMARY | 2025-04-12 08:17 | XMS_ITS | Clinical Summary ---
Author Organization [facility] Address [address] [place] [address] Care Team Providers Care Senior C Software Developer Name Role Phone Maykel Palafox MD Primary Care Provider [phone] Allergies Active Allergy Reactions Criticality Noted Date Comments Tamsulosin Dizziness 07/15/2022 Medications benazepril (LOTENSIN) 10 MG tabletIndicati ons:Hypertensi on Take 1 tablet (10 mg total) by mouth daily. Indications: High Blood Pressure 2 Active simvastatin (ZOCOR) 40 MG tabletIndicati ons:Hyperlipid emia Take 1 tablet (40 mg total) by mouth nightly at bedtime. Indications: High Amount of Fats in the Blood 2 Active multi vitamin/minera ls (THERA-M ENHANCED) tabletIndicati ons:supplement Take 1 tablet by mouth daily. Indications: supplement Active polyvinyl alcohol (LIQUIFILM/ART IFICIAL TEARS) 1.4 % ophthalmic solutionIndica tions:Dry Eye Syndrome Place 1 drop into both eyes as needed (dry eyes). Indications: Drying and Inflammation of Cornea and Conjunctiva of Eyes Active aspirin 325 MG tabletIndicati ons:anticogula nt Take 1 tablet (325 mg total) by mouth 2 (two) times daily. Indications: anticogulant 4 Active tiZANidine (ZANAFLEX) 4 MG tabletIndicati ons:S/P TKR (total knee replacement), left take 1 tablet by mouth every 6 hours as needed 30 tablet 4 Active Acetaminophen (TYLENOL ARTHRITIS EXT RELIEF OR) Active pregabalin (LYRICA) 75 MG capsule Take 1 capsule (75 mg total) by mouth 2 (two) times daily. 4 Active cephALEXin (KEFLEX) 500 MG capsuleIndicat ions:S/P TKR (total knee replacement), left Take 1 capsule 30-60 minutes prior to dental procedure, then take 1 capsule every 6 hours until gone. #6. 6 capsule 4 Active methylPREDNISo CORNELIO lan, (MEDROL DOSEPAK) 4 MG tablet take by mouth as directed on inside of package 5 Active HYDROcodone-ac etaminophen (NORCO) 5-325 MG tabletIndicati ons:Acute Pain < 7 Day Supply Take 1-2 tablets by mouth every 4 (four) hours as needed. Indications: Acute Pain < 7 Day Supply 45 tablet 4 025 Discontin ued(Thera py completed ) HYDROcodone-ac etaminophen (NORCO) 10-325 MG tabletIndicati ons:Acute Pain < 7 Day Supply Take 1 tablet by mouth every 4 (four) hours as needed for Pain. 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 Legal Sex Male 6:35 PM CDT Gender Identity Male 03/29/2025 8:14 AM CDT Sexual Orientation Straight 03/29/2025 8: 14 AM CDT Last Filed Vital Signs Vital Sign Reading Time Taken Comments Blood Pressure 135/78 03/29/2025 8:14 AM CDT Pulse 66 03/29/2025 8:14 AM CDT Temperature 36.7 C (98.1 F) 03/29/2025 8:14 AM CDT Respiratory Rate 18 04/11/2024 8:47 AM CDT Oxygen Saturation 97% 03/29/2025 8:14 AM CDT Inhaled Oxygen Concentration - - Weight 80.7 kg (178 lb) 03/29/2025 8:14 AM CDT Height 175.3 cm (5' 9) 03/29/2025 8:14 AM CDT Body Mass Index 26.29 03/29/2025 8:14 AM CDT Plan of Treatment Health Maintenance Due Date Last Done Comments Hepatitis C 1968 Annual Medicare Wellness Visit 2013 RSV Immunization or 60+ Years (1 - 1-dose 75+ series) 2023 COVID-19 Vaccine (2023- season) 2024 02/21/2022, 07/04/2021, 11/14/2020, Additional history exists DTaP, Tdap and Td Vaccines (3 - Td or Tdap) 07/26/2028 07/26/2018, 03/18/2017, 05/05/2002, Additional history exists Pneumococcal Vaccine: 50+ Years Completed 06/13/2018, 03/30/2017 Zoster Vaccines Completed 05/05/2022, 02/21/2022 Colorectal Cancer Screening FIT/FOBT (1 Year) Discontinued 07/15/2022 PHQ-2 (Physician [place]) Completed 09/28/2024 Meningococcal B Vaccine Aged Out [...] Taylor DO Medical Devices Implanted Type Area Chief Optometry Service Device Identifier Shelf Expiration Date Model / Serial / Lot Pump Pain On-Q 400ml - [id number] Implanted:Qty : 1 on 03/29/2024 by Tony Taylor DO at [facility] Pump Left: Knee [employer] [id number] 01/17/2026 [id number] / / [id number] Left, Size 6 Porous Tibia Baseplate Implanted:Qty : 1 on 03/29/2024 by Tony Taylor DO at [facility] Left: Tibia [employer] [id number] 04/19/2032 [id number] / / [id number] Size 5, Left Somemr Porous Cruciate Retaining Femoral Component Implanted:Qty : 1 on 03/29/2024 by Tony Taylor DO at [facility] Left: Femur [employer] [id number] 05/08/2033 [id number] / / [id number] Oval, Size 32mm Porous Patella Implanted:Qty : 1 on 03/29/2024 by Tony Taylor DO at [facility] Left: Patella [employer] [id number] 01/24/2032 [id number] / / [id number] Size 5-6, 10mm Deep Dished With Jrny Lock Articular Insert Implanted:Qty : 1 on 03/29/2024 by Tony Taylor DO at [facility] Left: Knee [employer] [id number] 11/03/2031 [id number] / / [id number] Procedures Procedure Name Priority Date/Time Associated Diagnosis Comments XR KNEE LT 3V Routine 03/29/2025 8:11 AM CDT S/P TKR (total knee replacement), left OCCULT BLOOD, FECES STAT 07/15/2022 1 :17 PM CDT from Last 3 Months or Most Recently Relevant to Health Maintenance Results * XR KNEE LT 3V (03/29/2025 8:11 AM CDT) Anatomical Region Laterality Modality Knee Radiographic Zulma ging 03/29/2025 8:19 AM CDT Impressions 03/29/2025 10:57 AM CDT IMPRESSION: No acute osseous abnormality. The attending radiologist has reviewed the image(s) and agrees with the content of this report. Ordered By: JAY NG Interpreted By: Michel Miller MD, 03/29/2025 8:19 AM Narrative 03/29/2025 10:57 AM CDT EXAMINATION: XR Left knee EXAM TIME: 03/29/2025 8:03 AM HISTORY: History of total knee replacement COMPARISON: X-ray left knee 05/12/2024 TECHNIQUE: AP, lateral, sunrise views of the left knee FINDINGS: No acute fractures are seen in the Left knee. Redemonstration of tricompartmental total knee replacement. No lucency is present surrounding the surgical hardware. The joint spaces are normal. Joint effusion. No soft tissue abnormality is seen. Vascular calcifications are seen. Calcifications of the interosseous membrane. Procedure Note Porfirio Bruno MD - 03/29/2025 EXAMINATION: XR Left knee EXAM TIME: 03/29/2025 8:03 AM HISTORY: History of total knee replacement COMPARISON: X-ray left knee 05/12/2024 TECHNIQUE: AP, lateral, sunrise views of the left knee FINDINGS: No acute fractures are seen in the Left knee. Redemonstration oftricompartmental total knee replacement. No lucency is present surroundingthe surgical hardware. The joint spaces are normal. Joint effusion. Nosoft tissue abnormality is seen. Vascular calcifications are seen.Calcifications of the interosseous membrane. IMPRESSION: No acute osseous abnormality. The attending radiologist has reviewed the image(s) and agrees with thecontent of this report. Ordered By: JAY NG Interpreted By: Michel Miller MD, 03/29/2025 8:19 AM us Jay Ng GAS LOAD DISPATCHER GENERAL IMAGING Final Re sult * OCCULT BLOOD, FECES (07/15/2022 1:17 PM CDT) OCCULT BLOOD FECAL POSITIVE 07/15/2022 1:31 PM CDT [facility] STOOL SPECIMEN / Unknown 07/15/2022 1:17 PM CDT Melanie Martinez PA BODY FLUIDS AND STOOLS ORDERA BLES Final Result Performing Organization Address City/State/[facility] Co de Phone Number [facility] [address] [place] [address], from Last 3 Months or Most Recently Relevant to Health Maintenance Additional Health Concerns Active Problems Noted Date Diagnosed Date Autogenerated Problem 01/23/2025 Insurance MEDICARE [place] Advance Directives * Full Code (Latest Code Status on File) Date Activated Date Inactivated Comments 04/11/2024 1:00 PM * Full Code Date Activated Date Inactivated Comments 03/31/2024 7:58 AM 04/03/2024 5:04 PM * Full Code Date Activated Date Inactivated Comments 03/29/2024 1:15 PM 03/30/2024 2:17 PM Care Teams Senior C Software Developer Relationship Specialty Start Date End Date Maykel Palafox MD [address] [place] [id number] PCP - General FAMILY PRACTICE 07/15/22
[2025-04-12 08:32] VITALS: BP 129/82; PULSE 65; RESP 18; TEMP 36.5; O2SAT 99; BMI 26.5
[2025-04-12] MEDS: ACETAMINOPHEN 500 MG TABLET 1000 MG PO (08:48)
--- NOTE | 2025-04-12 09:40 | P.PNAN_ITS ---
Anes - Initial Pre Proc Eval Procedure: Operation Date: 04/12/25 09:45 Proposed Procedures p Right Endoscopic Carpal Tunnel Release, Possible Open Carpal Tunnel Release - Jose Davila MD s Right Cubital Tunnel Release - Jose Davila MD Date/Time: 04/12/25 09:40 Surgeon: Jose Davila MD Pre Op Diagnosis: Bilateral Carpal and Cubital Tunnel Syndrome Patient Data Age: 74 Gender: M Height: 1.75 m Weight: 81.6 kg Last Vital Signs Temp 97.7 F 04/12/25 08:32 Pulse 65 04/12/25 08:32 Resp 18 04/12/25 08:32 BP 129/82 04/12/25 08:32 Pulse Ox 99 04/12/25 08:32 O2 Del Method Room Air 04/12/25 08:32 Allergies Allergy/AdvReac Type Severity Reaction Status Date / Time apixaban (From Eliquis) AdvReac Swelling Verified 04/12/25 08:30 Home Medications ?Medication ?Instructions ?Recorded ?Confirmed ?Type aspirin 81 mg tablet,delayed 81 mg PO DAILY 04/07/24 04/12/25 History release (Adult Low Dose Aspirin) acetaminophen 650 mg 650 mg PO Q8H PRN pain 06/05/24 04/12/25 History tablet,extended release (Tylenol Arthritis Pain) benazepril 10 mg tablet See Rx Instructions .Route 11/06/24 04/12/25 Rx .COMPLEX #90 tabs pregabalin 75 mg capsule (Lyrica) 75 mg PO BID #180 caps 11/06/24 04/12/25 Rx simvastatin 40 mg tablet See Rx Instructions .Route 02/06/25 04/12/25 Rx .COMPLEX #90 tabs tramadol 50 mg tablet 50 mg PO Q6H PRN pain #12 tabs 03/15/25 04/12/25 Rx Patient hx anesthesia problems: none Family hx anesthesia problems: none Results Review: All pre-operative results and documents have been reviewed as part of the pre- operative evaluation. [facility] Past Medical History Medical History Osteoarthritis Carpal tunnel syndrome Erectile dysfunction BPV (benign positional vertigo) Gastroenteritis Dizziness Abnormal vision Hypertension Hyperlipidemia Surgical History Surgical History Hx of total knee arthroplasty left 03/29/24 History of colonoscopy 2015 History of back surgery Social History Social History Social History: 09/21/24 very confident with medical forms Smoking status: Former smoker Additional smoking assessment comments: quit 33 years ago Alcohol intake: current Alcohol use details: occasionally Substance use: never Substance use type: does not use Do You Feel Safe in your Home?: Yes Lack of Transportation: No Lack of Food: Never True Current Housing: I Have Housing Concerned About Future Housing: No Difficulty Paying Gas/Electric Bills: No Difficulty Paying for Meds: No Currently Unemployed: No Education: High School Diploma/GED Difficulty w/ Childcare or Family Care: No Living arrangements: alone Occupation/Education: retired Spiritual care concerns: No Anes - Eval Final PreProcedure Day of Procedure 04/12/25 09:40 Heart: regular rate and rhythm Lungs: clear to auscultation Airway: Mallampati scale class II Neurological: alert and oriented ASA classification: II Anesthetic plan: proceed Anesthesia type and monitoring: monitored anesthesia care Results Review: All pre-operative results and documents have been reviewed as part of the pre- operative evaluation. Informed Consent: The patient's anesthetic plan and its attendant risks and benefits were discussed with the patient/family/POA. Questions were solicited and answers provided to the satisfaction of the patient/family/POA.
[2025-04-12] MEDS: LACTATED RINGERS 1,000 ML 30 ML IV CONT (09:51)
[2025-04-12] MEDS: ceFAZolin SODIUM 2 GM/20 ML SW SYRINGE IV PUSH (09:52)
[2025-04-12] MEDS: LIDO 1%/EPINEPHRINE 1:100,000 20 ML VIAL 5 ML INFILTRATE (10:09)
[2025-04-12] MEDS: BUPivacaine HCL 0.5% 10 ML AMP INFILTRATE (10:10)
[2025-04-12 10:25] VITALS: BP 116/76; PULSE 56; RESP 18; O2SAT 97
--- NOTE | 2025-04-12 10:28 | WPDANESPN ---
Anes - Prog Note Post-Op Date/Time: 04/12/25 10:28 Vital Signs: Last Vital Signs Temp 97.7 F 04/12/25 08:32 Pulse 65 04/12/25 08:32 Resp 18 04/12/25 08:32 BP 129/82 04/12/25 08:32 Pulse Ox 99 04/12/25 08:32 O2 Del Method Room Air 04/12/25 08:32 Pain Score (VAS): 0 Patient Feedback: Patient satisfied with anesthetic care.
[2025-04-12 10:45] VITALS: BP 114/71; PULSE 60; RESP 18; O2SAT 98
[2025-04-12 11:05] VITALS: BP 121/77; PULSE 58; RESP 18; O2SAT 98
== END 2025-04-12 11:20 | disposition home or self-care (01) ==
LOC: ASC 08:15
PROVIDERS: PCP Nurse Practitioner Family; Visit Provider Plastic Surgery
PROC: 01N54ZZ Release Median Nerve, Percutaneous Endoscopic Approach (ICD-10-PCS; CPT 29848; principal; 2025-04-12 09:45)
PROC: (CPT 64718; 2025-04-12 09:45)
DX: G56.01 Carpal tunnel syndrome, right upper limb (principal); G56.21 Lesion of ulnar nerve, right upper limb
CPT/HCPCS: 29848; 64718